=== PATIENT | female | born 1965 | race Caucasian/White ===

== ENCOUNTER 2016-11-28 09:59 | Inpatient (IN) | payer BC ==
[~2016-11-28] VITALS: Ht 160 cm; Wt 83.8 kg
[~2016-11-28 09:59] MED LIST: MONT1TAB3 PO; OXYC-57 PO
[2016-11-28] MEDS ORDERED: NAPR-1169 PO (10:50)
[2016-11-28] MEDS ORDERED: ASPI325T45 PO (10:50)
[2016-11-28 11:00] LABS: BASO % 0.1 %; BASO ABS # 0.01 K/uL (0-0.2); COMPLETE YES; EOS % 1.5 %; HEMATOCRIT 41.3 % (37-47); IG% 0.1 %; LYMPH % 22.9 %; LYMPH ABS # 2.12 K/uL (1.2-3.4); MEAN CELL VOLUME 84.5 fL (80-100); MEAN CORPUSCULAR HGB CONC 33.2 g/dl (32-36); MEAN PLATELET VOLUME 10.8 fL (7.4-10.4); MONO % 6.9 %; NEUT % 68.5 %; PLATELET COUNT 261 K/uL (130-400); RED BLOOD COUNT 4.89 M/uL (4.2-5.4); WHITE BLOOD COUNT 9.26 K/uL (4.8-10.8)
--- NOTE | 2016-11-28 11:20 | DIAGNOSTIC IMAGING REPORT ---
CHEST ONE VIEW PORTABLE HISTORY: Short of breath. COMPARISON: None. FINDINGS: The heart is normal in size. No pleural effusions. No pneumothorax. There is a 1 cm nodule in the base of the right lower lobe. This is not represent a nipple shadow. Otherwise, the lungs are clear. No focal lung consolidations to suggest pneumonia.. IMPRESSION: 1. No acute process within the chest. 2. Possible 1 cm nodule at the base the right lower lobe. Repeat PA and lateral views of the chest with oblique views is recommended once the patient is stabilized. Electronically signed by: Dipak Ernst M.D. 11/28/2016 11:18 AM Dictated Date/Time: 11/28/2016 11:16 AM
[2016-11-28 11:26] LABS: ALB/GLOB RATIO 1.1 (0.9-2); BUN/CREATININE RATIO 13.5 (10-20); CALCIUM 8.9 mg/dl (8.5-10.1); CKMB/CK RATIO 0.7 (0-3.0); CREATININE 0.99 mg/dl (0.60-1.20)
[2016-11-28] MEDS ORDERED: OPTIRAY 320 IV PRN (11:30)
--- NOTE | 2016-11-28 11:55 | EMERGENCY ROOM VISIT NOTE ---
History Report prepared by Toyin: Charla Oscar Under the Supervision of: Dr. Dom Jackson M.D. First contact with patient: 11:13 Chief Complaint: SHORTNESS OF BREATH Stated Complaint: SOB Nursing Triage Summary: Patient states she had tendon repair surgery (right) 3 weeks ago and yesterday afternoon started feeling SOB with normal activity. Pt c/o tightness in center of chest like "I can't take a deep breath and with exertion I feel like I'm, I don't have other respiratory symptoms, but when I had pneumonia I remember feeling this way. History of Present Illness The patient is a 51 year old female who presents to the Emergency Room with complaints of persistent shortness of breath that began yesterday. The patient notes that she had a tendon repair done on her right leg three weeks ago. She states that she has noted swelling to the area, but notes it has been swollen since her surgery. The patient states that yesterday she was doing her normal amount of work throughout the day, and noticed shortness of breath. She states that she took an antacid without relief. The patient states that she had been taking aspirin, but has not over the past several days. She states that on Monday she drove to and from [place], but notes being active while in [place]. The patient states that when she returned home on Monday she noticed increased swelling to her right ankle and states that the swelling was alleviated with elevation. The patient denies any current cough, but notes congestion. The patient states that her shortness of breath has persisted today , but denies any chest pain, just a "hitching" sensation. She denies any urinary symptoms. The patient notes a history of kidney cancer, noting that she had a partial nephrectomy. Source of History: patient Onset: yesterday Position: other (global) Quality: other (shortness of breath) Timing: other (persistent) Associated Symptoms: No chest pain, No urinary symptoms Note: Associated Symptoms: chest hitching Review of Systems See HPI for pertinent positives & negatives. A total of 10 systems reviewed and were otherwise negative. Past Medical & Surgical Medical Problems: (1) Dyspnea (2) Pneumonia (3) Renal cancer Surgical Problems: (1) H/O partial nephrectomy (2) S/P cholecystectomy Family History Cancer FH: heart disease FHx: lung disease Hypertension Social History Smoking Status: Never Smoker Smokeless Tobacco Use: No Alcohol Use: none Marital Status: Housing Status: lives with significant other Occupation Status: employed Current/Historical Medications Scheduled Aspirin (Aspirin), 325 MG PO DAILY Montelukast Sodium (Singulair), 10 MG PO HS Naproxen (Naprosyn), 500 MG PO BID Allergies Coded Allergies: BEE STING (Verified Allergy, Unknown, SWELLING, 11/28/16) Tamsulosin (Verified Allergy, Unknown, NUMBNESS/TINGLING ON ARM, 11/28/16) Physical Exam Vital Signs Date Time Temp Pulse Resp B/P Pulse Ox O2 Delivery O2 Flow Rate FiO2 11/28/16 16:36 75 11/28/16 15:28 36.7 87 16 144/76 98 Room Air 11/28/16 14:50 75 13 144/76 98 Room Air 11/28/16 12:47 134/83 11/28/16 11:59 130/69 11/28/16 11:29 77 16 11/28/16 10:59 77 19 97 11/28/16 10:58 117/73 11/28/16 10:47 79 18 129/74 98 Room Air 11/28/16 10:46 86 11/28/16 10:43 129/74 11/28/16 10:35 98 Room Air 11/28/16 10:17 36.7 85 18 149/68 97 Room Air Physical Exam GENERAL: Patient is in no acute distress. HEENT: No acute trauma, normocephalic atraumatic, mucous membranes moist, no nasal congestion, no scleral icterus. NECK: No stridor, no adenopathy, no meningismus, trachea is midline. LUNGS: Clear to auscultation bilaterally, no wheeze, no rhonchi, breath sounds equal. HEART: Without murmurs gallops or rubs, regular rate and rhythm. ABDOMEN: Soft, nontender, bowel sounds positive, no hernias, no peritonitis. EXTREMITIES: Right leg slightly swollen in comparison to left, no cellulitis, surgical incision healing without signs of infection NEUROLOGIC: Oriented x 3, no acute motor or sensory deficits, no focal weakness. SKIN: No rash, no jaundice, no diaphoresis. Medical Decision & Procedures ER Provider Diagnostic Interpretation: X ray results and stated below per my interpretation and radiologist interpretation. Other radiology results and stated below per my review and radiologist interpretation: CHEST ONE VIEW PORTABLE HISTORY: Short of breath. COMPARISON: None. FINDINGS: The heart is normal in size. No pleural effusions. No pneumothorax. There is a 1 cm nodule in the base of the right lower lobe. This is not represent a nipple shadow. Otherwise, the lungs are clear. No focal lung consolidations to suggest pneumonia.. IMPRESSION: 1. No acute process within the chest. 2. Possible 1 cm nodule at the base the right lower lobe. Repeat PA and lateral views of the chest with oblique views is recommended once the patient is stabilized. Electronically signed by: Dipak Ernst M.D. 11/28/2016 11:18 AM Dictated Date/Time: 11/28/2016 11:16 AM RIGHT LOWER EXTREMITY VENOUS DOPPLER CLINICAL HISTORY: Right lower external swelling. Shortness of breath. COMPARISON STUDY: No previous studies for comparison. TECHNIQUE: Sonography of the deep venous system of the right lower extremity was performed. Compression and augmentation were evaluated. FINDINGS: The right common femoral vein is patent. The proximal to mid right superficial femoral vein is patent. There is occlusive thrombus within the distal right superficial femoral vein, popliteal vein, posterior tibial vein, peroneal vein. There is a small amount of thrombus within the right anterior tibial vein. IMPRESSION: Extensive deep venous thrombus within the right lower extremity. Electronically signed by: Francisco Carlisle M.D. 11/28/2016 12:36 PM Dictated Date/Time: 11/28/2016 12:[address] ANGIOGRAM OF THE CHEST CLINICAL HISTORY: Chest pain, shortness of breath. History of recent surgery. DVT COMPARISON STUDY: Chest x-ray dated 11/28/2016 TECHNIQUE: Following the IV administration of 93 mL of Optiray-320, CT angiogram of the thorax was performed from the thoracic inlet to the lung bases utilizing the pulmonary embolus protocol. Images are reviewed in the axial, sagittal, and coronal planes. IV contrast was administered without complication. MIP imaging was performed. CT DOSE: 324.04 mGy.cm FINDINGS: No pathologically enlarged axillary mediastinal or hilar lymph nodes were visualized. There was no evidence of thoracic aortic dilatation. There is a saddle embolus measuring 8 mm in diameter. Pulmonary filling defects are visualized within both lower lobes as well as the right middle lobe. The findings are consistent with acute bilateral pulmonary embolism. No pleural effusions are visualized. There are bibasal atelectatic changes. There is no focal pulmonary consolidation. There is a 3 mm calcified granuloma within the right lung apex IMPRESSION: Acute bilateral pulmonary embolism including a saddle embolus which measures 8 mm in diameter. Electronically signed by: Shree Johnson M.D. 11/28/2016 1:57 PM Dictated Date/Time: 11/28/2016 1:53 PM Laboratory Results 11/28/16 10:35 Red Blood Count 4.89, Mean Corpuscular Volume 84.5, Mean Corpuscular Hemoglobin 28.0, Mean Corpuscular Hemoglobin Concent 33.2, Mean Platelet Volume 10.8, Neutrophils (%) (Auto) 68.5, Lymphocytes (%) (Auto) 22.9, Monocytes (%) (Auto) 6.9, Eosinophils (%) (Auto) 1.5, Basophils (%) (Auto) 0.1, Neutrophils # (Auto) 6.34, Lymphocytes # (Auto) 2.12, Monocytes # (Auto) 0.64, Eosinophils # (Auto) 0.14, Basophils # (Auto) 0.01 11/28/16 10:35 Test 11/28/16 10:35 11/28/16 11:28 11/28/16 11:30 White Blood Count 9.26 K/uL (4.8-10.8) Red Blood Count 4.89 M/uL (4.2-5.4) Hemoglobin 13.7 g/dL (12.0-16.0) Hematocrit 41.3 % (37-47) Mean Corpuscular Volume 84.5 fL (80-100) Mean Corpuscular Hemoglobin 28.0 pg (25-34) Mean Corpuscular Hemoglobin Concent 33.2 g/dl (32-36) Platelet Count 261 K/uL (130-400) Mean Platelet Volume 10.8 fL (7.4-10.4) Neutrophils (%) (Auto) 68.5 % Lymphocytes (%) (Auto) 22.9 % Monocytes (%) (Auto) 6.9 % Eosinophils (%) (Auto) 1.5 % Basophils (%) (Auto) 0.1 % Neutrophils # (Auto) 6.34 K/uL (1.4-6.5) Lymphocytes # (Auto) 2.12 K/uL (1.2-3.4) Monocytes # (Auto) 0.64 K/uL (0.11-0.59) Eosinophils # (Auto) 0.14 K/uL (0-0.5) Basophils # (Auto) 0.01 K/uL (0-0.2) RDW Standard Deviation 41.6 fL (36.4-46.3) RDW Coefficient of Variation 13.6 % (11.5-14.5) Immature Granulocyte % (Auto) 0.1 % Immature Granulocyte # (Auto) 0.01 K/uL (0.00-0.02) Anion Gap 14.0 mmol/L (3-11) Est Creatinine Clear Calc Drug Dose 65.7 ml/min Estimated GFR () 75.9 Estimated GFR (Non- 65.5 BUN/Creatinine Ratio 13.5 (10-20) Calcium Level 8.9 mg/dl (8.5-10.1) Total Bilirubin 0.3 mg/dl (0.2-1) Aspartate Amino Transf (AST/SGOT) 19 U/L (15-37) Alanine Aminotransferase (ALT/SGPT) 18 U/L (12-78) Alkaline Phosphatase 96 U/L (45-117) Total Creatine Kinase 83 U/L (26-192) Creatine Kinase MB 0.6 ng/ml (0.5-3.6) Creatine Kinase MB Ratio 0.7 (0-3.0) Total Protein 7.7 gm/dl (6.4-8.2) Albumin 4.0 gm/dl (3.4-5.0) Globulin 3.7 gm/dl (2.5-4.0) Albumin/Globulin Ratio 1.1 (0.9-2) Chemistry Specimen Hemolysis Bedside Troponin I 0.000 ng/ml (0-0.045) Prothrombin Time 10.1 SECONDS (9.0-12.0) Prothromb Time International Ratio 0.9 (0.9-1.1) Activated Partial Thromboplast Time 28.4 SECONDS (21.0-31.0) Partial Thromboplastin Ratio 1.1 Laboratory results reviewed by me. Medications Administered Medications (Trade) Dose Ordered Sig/Amalia Route Start Time Stop Time Status Last Admin Dose Admin Heparin Sodium/ Dextrose 1 ea NOW STAT N/A 11/28/16 14:30 11/28/16 14:31 DC 11/28/16 14:47 1 EA Heparin Sodium (Porcine) (Heparin Sq 5000 Unit/0.5ml) 5,000 unit STK-MED ONCE .ROUTE 11/28/16 14:36 11/28/16 14:38 DC 11/28/16 14:40 5,000 UNIT Heparin Sodium/ Dextrose (Heparin 25,000 Unit/500ml D5W) 25,000 unit STK-MED ONCE .ROUTE 11/28/16 14:36 11/28/16 14:38 DC 11/28/16 14:42 25,000 UNIT ECG Indication: SOB/dyspnea Rate (beats per minute): 74 Rhythm: normal sinus Findings: no acute ischemic change, other (subtle t wave changes anteriorly) Comparison ECG Date: 10/25/16 Change: no significant change ED Course 1118: The patient was evaluated in room C11B. A complete history and physical exam was performed. 1406: I discussed the patients case with VIANCA Lazcano. He is going to evaluate the patient for further treatment. 1410: I reevaluated the patient and she is resting comfortably. I discussed the exam findings with her and I discussed the treatment plan. She verbalized complete understanding and agreement. She will be evaluated for further treatment. 1430: Ordered Heparin Sodium/Dextrose 1 ea NA. 1436: Ordered Heparin Sodium/Dextrose 25,000 unit .route, Heparin Sodium ( Porcine) 5,000 unite .route Medical Decision The patient is a 51 year old female who presents to the ED with complaints of shortness of breath. Differential diagnoses considered include DVT or PE, bronchitis or pneumonia, cellulitis, CHF, anemia, dehydration. There is no leukocytosis or concerning anemia. No significant electrolyte abnormality, kidney failure or hepatitis. There is no coagulopathy. EKG shows a sinus rhythm, there is no acute ischemic change. Cardiac enzyme testing 1 is not suggestive of acute cardiac injury. Right leg ultrasound shows an extensive right leg DVT. Chest CT shows pulmonary emboli and a saddle embolus. The patient was aggressively managed. She received IV saline, she was given IV heparin for anticoagulation. I talked to the patient, I discussed things with radiology. I spoke with case management. The on-call hospitalist was consulted. Admission/observation is warranted. Consults Time Called: 1404 Consulting Physician: VIANCA Lazcano Returned Call: [phone] I discussed the patients case with VIANCA Lazcano. He is going to evaluate the patient for further treatment. Impression Primary Impression: Pulmonary embolism Additional Impression: DVT (deep venous thrombosis) Critical Care I have personally spent greater than 30 minutes of critical care time in the direct management of this patient. This includes bedside care, interpretation of diagnostic studies and testing, discussion with consultants, the patient, and family members, and other required patient management activities. This 30 minutes is in excess of all separately billable procedures. Scribe Attestation The scribe's documentation has been prepared under my direction and personally reviewed by me in its entirety. I confirm that the note above accurately reflects all work, treatment, procedures, and medical decision making performed by me. Departure Information Dispostion Being Evaluated By Hospitalist Referrals Nacho Enciso DO (PCP) Problem Qualifiers
[2016-11-28 12:08] LABS: INR 0.9 (0.9-1.1); PARTIAL THROMBOPLASTIN RATIO 1.1; PROTHROMBIN TIME (PATIENT) 10.1 SECONDS (9.0-12.0)
--- NOTE | 2016-11-28 12:38 | DIAGNOSTIC IMAGING REPORT ---
RIGHT LOWER EXTREMITY VENOUS DOPPLER CLINICAL HISTORY: Right lower external swelling. Shortness of breath. COMPARISON STUDY: No previous studies for comparison. TECHNIQUE: Sonography of the deep venous system of the right lower extremity was performed. Compression and augmentation were evaluated. FINDINGS: The right common femoral vein is patent. The proximal to mid right superficial femoral vein is patent. There is occlusive thrombus within the distal right superficial femoral vein, popliteal vein, posterior tibial vein, peroneal vein. There is a small amount of thrombus within the right anterior tibial vein. IMPRESSION: Extensive deep venous thrombus within the right lower extremity. Electronically signed by: Francisco Carlisle M.D. 11/28/2016 12:36 PM Dictated Date/Time: 11/28/2016 12:34 PM
--- NOTE | 2016-11-28 13:59 | DIAGNOSTIC IMAGING REPORT ---
CT ANGIOGRAM OF THE CHEST CLINICAL HISTORY: Chest pain, shortness of breath. History of recent surgery. DVT COMPARISON STUDY: Chest x-ray dated 11/28/2016 TECHNIQUE: Following the IV administration of 93 mL of Optiray-320, CT angiogram of the thorax was performed from the thoracic inlet to the lung bases utilizing the pulmonary embolus protocol. Images are reviewed in the axial, sagittal, and coronal planes. IV contrast was administered without complication. MIP imaging was performed. CT DOSE: 324.04 mGy.cm FINDINGS: No pathologically enlarged axillary mediastinal or hilar lymph nodes were visualized. There was no evidence of thoracic aortic dilatation. There is a saddle embolus measuring 8 mm in diameter. Pulmonary filling defects are visualized within both lower lobes as well as the right middle lobe. The findings are consistent with acute bilateral pulmonary embolism. No pleural effusions are visualized. There are bibasal atelectatic changes. There is no focal pulmonary consolidation. There is a 3 mm calcified granuloma within the right lung apex IMPRESSION: Acute bilateral pulmonary embolism including a saddle embolus which measures 8 mm in diameter. Electronically signed by: Shree Johnson M.D. 11/28/2016 1:57 PM Dictated Date/Time: 11/28/2016 1:53 PM
[2016-11-28] MEDS ORDERED: ENOXAPARIN 80 MG/0.8 ML SYR SQ ONE (14:06)
[2016-11-28] MEDS ORDERED: ENOXAPARIN 1 MG/KG SQ STA (14:06)
[2016-11-28] MEDS ORDERED: HEPARIN 25000 UNIT/500 ML D5W ONE (14:36)
[2016-11-28] MEDS ORDERED: HEPARIN SOD 5000 UNIT/0.5 ML CARP ONE ×2 (14:36→14:43)
[2016-11-28] MEDS ORDERED: ALUMINUM/MAGNESIUM/SIMETH (MAALOX MAX) 30 ML UDC PO PRN (15:15)
[2016-11-28] MEDS ORDERED: POLYETHYLENE (MIRALAX) 17 GM PACK PO PRN (15:15)
[2016-11-28] MEDS ORDERED: ACETAMINOPHEN 325 MG TAB PO PRN (15:15)
[2016-11-28] MEDS ORDERED: MAGNESIUM HYDROXIDE SUSP 30 ML UDC PO PRN (15:15)
[2016-11-28] MEDS ORDERED: ONDANSETRON INJ 2 MG/ML 2 ML VIAL IV PRN (15:15)
[2016-11-28 15:28] VITALS: BP 144/76; PULSE 87; TEMP 36.7; O2SAT 98; Ht 160 cm; Wt 83.8 kg
--- NOTE | 2016-11-28 16:20 | History and Physical ---
History & Physical Date & Time of Service: Nov 28, 2016 at 15:39 Chief Complaint: SOB Primary Care Physician: Nacho Enciso DO History of Present Illness Source: patient, family This is a pleasant 51 yo F w/ recent hx of Left Tendon repair (3 wks ago) by Dr. Cornell and hx of Renal Cell Carcinoma s/p L partial Nephrectomy (10 yrs ago ) p/w SOB. SOB began while she was doing laundry around 2 pm 11/27/2016. She took ASA 81 mg, antacids, slept through the night. This morning she went to work and after no improvement in symptoms, she decided to come in to ED for evaluation after she realized she felt similarly to when she previously had pneumonia. She also noticed Sat. 11/26 that she had RLE swelling but attributed it to recent surgery. She denies CP, Palpitation, Syncope, LOC, N/V, fevers/ chills, cough. NO previous VTE. Patient is a non-smoker. She states that Monday she drove to and from [place]. She reports her mother has hx of multiple clots. On arrival to ED, she was afebrile, VSS, 97-98 % sat on rm air. RLE Doppler showed extensive DVT. CT with PE protocols showed Acute Joseph PE with Saddle Embolus 8mm in diameter. She was given bolus of heparin. 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) Multi-Drug Resistant Organisms History of MDRO: No Allergies Coded Allergies: BEE STING (Verified Allergy, Unknown, SWELLING, 11/28/16) Tamsulosin (Verified Allergy, Unknown, NUMBNESS/TINGLING ON ARM, 11/28/16) Home Medications Scheduled Aspirin (Aspirin), 325 MG PO DAILY Montelukast Sodium (Singulair), 10 MG PO HS Naproxen (Naprosyn), 500 MG PO BID Review of Systems Constitutional: No chills, No fever Respiratory: + shortness of breath, No cough, No hemoptysis, No sputum Cardiovascular: + edema (Rt lower extremity), No chest pain, No palpitations Abdomen: No constipation, No diarrhea, No nausea, No pain, No vomiting Genitourinary - Female: No dysuria, No urinary urgency Hematologic / Lymphatic: No abnormal bleeding/bruising, No clotting problems Integumentary: No itch, No rash Allergic / Immunologic: + seasonal allergies Physical Exam Vital Signs Date Time Temp Pulse Resp B/P Pulse Ox O2 Delivery O2 Flow Rate FiO2 11/28/16 14:50 75 13 144/76 98 Room Air 11/28/16 12:47 134/83 11/28/16 11:59 130/69 11/28/16 11:29 77 16 11/28/16 10:59 77 19 97 11/28/16 10:58 117/73 11/28/16 10:47 79 18 129/74 98 Room Air 11/28/16 10:46 86 11/28/16 10:43 129/74 11/28/16 10:35 98 Room Air 11/28/16 10:17 36.7 85 18 149/68 97 Room Air General Appearance: WD/WN, no apparent distress Eyes: normal inspection, PERRL Neck: supple, no JVD, trachea midline Respiratory/Chest: lungs clear, normal breath sounds, no respiratory distress Cardiovascular: regular rate, rhythm, no murmur Abdomen/GI: normal bowel sounds, soft Extremities/Musculoskelatal: no calf tenderness, no pedal edema, + pertinent finding (RLE edema. non-erythematous, non-tender, not warm. Incision C/D/I) Neurologic/Psych: alert, normal mood/affect Skin: normal color, warm/dry Diagnostics Laboratory Results Results Past 24 Hours Test 11/28/16 10:35 11/28/16 11:28 11/28/16 11:30 Range/Units White Blood Count 9.26 4.8-10.8 K/uL Red Blood Count 4.89 4.2-5.4 M/uL Hemoglobin 13.7 12.0-16.0 g/dL Hematocrit 41.3 37-47 % Mean Corpuscular Volume 84.5 80-100 fL Mean Corpuscular Hemoglobin 28.0 25-34 pg Mean Corpuscular Hemoglobin Concent 33.2 32-36 g/dl Platelet Count 261 130-400 K/uL Mean Platelet Volume 10.8 7.4-10.4 fL Neutrophils (%) (Auto) 68.5 % Lymphocytes (%) (Auto) 22.9 % Monocytes (%) (Auto) 6.9 % Eosinophils (%) (Auto) 1.5 % Basophils (%) (Auto) 0.1 % Neutrophils # (Auto) 6.34 1.4-6.5 K/uL Lymphocytes # (Auto) 2.12 1.2-3.4 K/uL Monocytes # (Auto) 0.64 0.11-0.59 K/uL Eosinophils # (Auto) 0.14 0-0.5 K/uL Basophils # (Auto) 0.01 0-0.2 K/uL RDW Standard Deviation 41.6 36.4-46.3 fL RDW Coefficient of Variation 13.6 11.5-14.5 % Immature Granulocyte % (Auto) 0.1 % Immature Granulocyte # (Auto) 0.01 0.00-0.02 K/uL Sodium Level 142 136-145 mmol/L Potassium Level 4.0 3.5-5.1 mmol/L Chloride Level 105 98-107 mmol/L Carbon Dioxide Level 23 21-32 mmol/L Anion Gap 14.0 3-11 mmol/L Blood Urea Nitrogen 13 7-18 mg/dl Creatinine 0.99 0.60-1.20 mg/dl Est Creatinine Clear Calc Drug Dose 65.7 ml/min Estimated GFR () 75.9 Estimated GFR (Non- 65.5 BUN/Creatinine Ratio 13.5 10-20 Random Glucose 106 70-99 mg/dl Calcium Level 8.9 8.5-10.1 mg/dl Total Bilirubin 0.3 0.2-1 mg/dl Aspartate Amino Transf (AST/SGOT) 19 15-37 U/L Alanine Aminotransferase (ALT/SGPT) 18 12-78 U/L Alkaline Phosphatase 96 45-117 U/L Total Creatine Kinase 83 26-192 U/L Creatine Kinase MB 0.6 0.5-3.6 ng/ml Creatine Kinase MB Ratio 0.7 0-3.0 Total Protein 7.7 6.4-8.2 gm/dl Albumin 4.0 3.4-5.0 gm/dl Globulin 3.7 2.5-4.0 gm/dl Albumin/Globulin Ratio 1.1 0.9-2 Chemistry Specimen Hemolysis Bedside Troponin I 0.000 0-0.045 ng/ml Prothrombin Time 10.1 9.0-12.0 SECONDS Prothromb Time International Ratio 0.9 0.9-1.1 Activated Partial Thromboplast Time 28.4 21.0-31.0 SECONDS Partial Thromboplastin Ratio 1.1 Diagnostic Radiology CHEST ONE VIEW PORTABLE HISTORY: Short of breath. COMPARISON: None. FINDINGS: The heart is normal in size. No pleural effusions. No pneumothorax. There is a 1 cm nodule in the base of the right lower lobe. This is not represent a nipple shadow. Otherwise, the lungs are clear. No focal lung consolidations to suggest pneumonia.. IMPRESSION: 1. No acute process within the chest. 2. Possible 1 cm nodule at the base the right lower lobe. Repeat PA and lateral views of the chest with oblique views is recommended once the patient is stabilized. RIGHT LOWER EXTREMITY VENOUS DOPPLER CLINICAL HISTORY: Right lower external swelling. Shortness of breath. COMPARISON STUDY: No previous studies for comparison. TECHNIQUE: Sonography of the deep venous system of the right lower extremity was performed. Compression and augmentation were evaluated. FINDINGS: The right common femoral vein is patent. The proximal to mid right superficial femoral vein is patent. There is occlusive thrombus within the distal right superficial femoral vein, popliteal vein, posterior tibial vein, peroneal vein. There is a small amount of thrombus within the right anterior tibial vein. IMPRESSION: Extensive deep venous thrombus within the right lower extremity. CT ANGIOGRAM OF THE CHEST CLINICAL HISTORY: Chest pain, shortness of breath. History of recent surgery. DVT COMPARISON STUDY: Chest x-ray dated 11/28/2016 TECHNIQUE: Following the IV administration of 93 mL of Optiray-320, CT angiogram of the thorax was performed from the thoracic inlet to the lung bases utilizing the pulmonary embolus protocol. Images are reviewed in the axial, sagittal, and coronal planes. IV contrast was administered without complication. MIP imaging was performed. CT DOSE: 324.04 mGy.cm FINDINGS: No pathologically enlarged axillary mediastinal or hilar lymph nodes were visualized. There was no evidence of thoracic aortic dilatation. There is a saddle embolus measuring 8 mm in diameter. Pulmonary filling defects are visualized within both lower lobes as well as the right middle lobe. The findings are consistent with acute bilateral pulmonary embolism. No pleural effusions are visualized. There are bibasal atelectatic changes. There is no focal pulmonary consolidation. There is a 3 mm calcified granuloma within the right lung apex IMPRESSION: Acute bilateral pulmonary embolism including a saddle embolus which measures 8 mm in diameter. Impression Assessment and Plan 51 yo F p/w SOB admitted for DVT, JOSEPH PE w/ 8mm diam. saddle embolus, currently hemodynamically stable given Heparin bolus DVT/PE/ Hypercoagulability -hemodynamically stable, 98% saturation rm air -LE Doppler: extensive Rt LE DVT -CTA: Acute Joseph PE with Saddle Embolus (8mm diameter) - VTE likely due to elevated post-operative risk in hypercoagulability , Considered recurrence of malignancy based on hx of RCC and Familial Hypercoagulability given's mother's history of thrombi - started on Heparin Bolus -Start weight- based Heparin infusion -Consider Hypercoagulability workup as an outpatient given patient's family hx of VTE -Continue ASA 325mg from home Hx of Renal Cell Carcinoma (10 yrs ago) - s/p L partial Nephrectomy - R/O potential recurrence in RCC contributing to hypercoagulability, Ordered Renal U/S for evaluation s/p Left Peroneal Tendon repair -Orthopedics consulted for evaluation - Continue home dose of Naproxen for pain Seasonal Allergy Continue home dose of Montelukast Full Resuscitation Advanced Directives Existing Advance Directive: No Existing Living Will: No Existing Power of Wire Repairer: No Resuscitation Status FULL RESUSCITATION VTE Prophylaxis VTE Risk Assessment Done? Y/N: Yes Risk Level: High Given or contraindicated: Unfractionated heparin SQ Additional Copies To Nacho Enciso, DO
[2016-11-28] MEDS ORDERED: HEPARIN 25,000 UNIT/500ML D5W 500 ML IV PRN (17:15)
[2016-11-28 20:00] VITALS: O2SAT 95
[2016-11-28 20:46] VITALS: BP 134/81; PULSE 73; TEMP 36.5; O2SAT 95
[2016-11-28] MEDS: MONTELUKAST SOD 10 MG TAB PO SCH (21:10)
[2016-11-28] MEDS: NAPROXEN 250 MG TAB PO SCH (21:10)
[2016-11-28 21:31] LABS: PARTIAL THROMBOPLASTIN RATIO 2.4
--- NOTE | 2016-11-28 22:37 | DIAGNOSTIC IMAGING REPORT ---
ULTRASOUND KIDNEYS AND BLADDER CLINICAL HISTORY: History of renal cell carcinoma. COMPARISON STUDY: Abdominal CT dated 09/04/2006. TECHNIQUE: Real-time, grayscale, and color flow sonography of the kidneys and bladder is performed. Images are reviewed in the transverse and longitudinal planes. FINDINGS: Kidneys: The kidneys are normal in size and echotexture. The right kidney measures 9.0 x 4.4 x 5.9 cm and the left kidney measures 10.3 x 5.3 x 6.3 cm. There is no hydronephrosis. No shadowing renal calculi are identified. There is a cortical defect suspected in the lower pole of left kidney. There is no sonographic evidence of solid renal mass. No perinephric fluid is identified. Bladder: The partially decompressed bladder is grossly normal in appearance. Only the right ureteral jet was seen. IMPRESSION: 1. There is no hydronephrosis. 2. There is a cortical defect suspected in the lower pole of the left kidney. This may be on a postoperative basis given the reported history of renal cell carcinoma. Clinical correlation will be required. 3. There is no sonographic evidence of solid renal mass lesion. 4. The bladder is partially decompressed and grossly unremarkable. Electronically signed by: Dom Finch M.D. 11/28/2016 10:35 PM Dictated Date/Time: 11/28/2016 10:33 PM
[2016-11-28 23:25] VITALS: BP 119/79; PULSE 73; TEMP 36.7; O2SAT 93
[2016-11-29] VITALS (11 sets, daily range): BP systolic 110–126; BP diastolic 67–82; PULSE 68–79; TEMP 36.4–37; O2SAT 93–97
--- NOTE | 2016-11-29 07:35 | Progress Note ---
Subjective Date of Service: Nov 29, 2016. Subjective this pt is stable and outside of some postural shortness of breath last evening has been improved and without symptoms Problem List Medical Problems: (1) DVT (deep venous thrombosis) Status: Acute (2) Pulmonary embolism Status: Acute Review of Systems Constitutional: No chills, No fever Respiratory: + dyspnea on exertion, + shortness of breath, No cough, No dyspnea at rest Cardiac: No chest pain, No edema Abdomen: No diarrhea, No nausea, No pain, No vomiting Musculoskeletal: + joint pain, + muscle pain Objective Vital Signs Date Time Temp Pulse Resp B/P Pulse Ox O2 Delivery O2 Flow Rate FiO2 11/29/16 04:37 36.4 72 19 123/78 94 Room Air 11/29/16 04:00 93 Room Air 11/29/16 00:01 93 Room Air 11/28/16 23:25 36.7 73 19 119/79 93 Room Air 11/28/16 20:46 36.5 73 18 134/81 95 Room Air 11/28/16 20:00 95 Room Air 11/28/16 16:50 76 16 121/72 98 Room Air 11/28/16 16:36 75 11/28/16 15:28 36.7 87 16 144/76 98 Room Air 11/28/16 14:50 75 13 144/76 98 Room Air 11/28/16 12:47 134/83 11/28/16 11:59 130/69 11/28/16 11:29 77 16 11/28/16 10:59 77 19 97 11/28/16 10:58 117/73 11/28/16 10:47 79 18 129/74 98 Room Air 11/28/16 10:46 86 11/28/16 10:43 129/74 11/28/16 10:35 98 Room Air 11/28/16 10:17 36.7 85 18 149/68 97 Room Air Physical Exam General Appearance: WD/WN, + mild distress Neck: supple, no JVD Respiratory/Chest: chest non-tender, lungs clear, normal breath sounds Cardiovascular: regular rate, rhythm, no murmur Abdomen: normal bowel sounds, non tender, soft Extremities: no pedal edema, no calf tenderness Laboratory Results Last 24 Hours Test 11/28/16 10:35 11/28/16 11:28 11/28/16 11:30 11/28/16 20:56 White Blood Count 9.26 K/uL Red Blood Count 4.89 M/uL Hemoglobin 13.7 g/dL Hematocrit 41.3 % Mean Corpuscular Volume 84.5 fL Mean Corpuscular Hemoglobin 28.0 pg Mean Corpuscular Hemoglobin Concent 33.2 g/dl Platelet Count 261 K/uL Mean Platelet Volume 10.8 fL Neutrophils (%) (Auto) 68.5 % Lymphocytes (%) (Auto) 22.9 % Monocytes (%) (Auto) 6.9 % Eosinophils (%) (Auto) 1.5 % Basophils (%) (Auto) 0.1 % Neutrophils # (Auto) 6.34 K/uL Lymphocytes # (Auto) 2.12 K/uL Monocytes # (Auto) 0.64 K/uL Eosinophils # (Auto) 0.14 K/uL Basophils # (Auto) 0.01 K/uL RDW Standard Deviation 41.6 fL RDW Coefficient of Variation 13.6 % Immature Granulocyte % (Auto) 0.1 % Immature Granulocyte # (Auto) 0.01 K/uL Sodium Level 142 mmol/L Potassium Level 4.0 mmol/L Chloride Level 105 mmol/L Carbon Dioxide Level 23 mmol/L Anion Gap 14.0 mmol/L Blood Urea Nitrogen 13 mg/dl Creatinine 0.99 mg/dl Est Creatinine Clear Calc Drug Dose 65.7 ml/min Estimated GFR () 75.9 Estimated GFR (Non- 65.5 BUN/Creatinine Ratio 13.5 Random Glucose 106 mg/dl Calcium Level 8.9 mg/dl Total Bilirubin 0.3 mg/dl Aspartate Amino Transf (AST/SGOT) 19 U/L Alanine Aminotransferase (ALT/SGPT) 18 U/L Alkaline Phosphatase 96 U/L Total Creatine Kinase 83 U/L Creatine Kinase MB 0.6 ng/ml Creatine Kinase MB Ratio 0.7 Total Protein 7.7 gm/dl Albumin 4.0 gm/dl Globulin 3.7 gm/dl Albumin/Globulin Ratio 1.1 Chemistry Specimen Hemolysis Bedside Troponin I 0.000 ng/ml Prothrombin Time 10.1 SECONDS Prothromb Time International Ratio 0.9 Activated Partial Thromboplast Time 28.4 SECONDS 63.4 SECONDS Partial Thromboplastin Ratio 1.1 2.4 Test 11/29/16 04:44 Assessment and Plan 51 yo FDVT, JOSEPH PE w/ 8mm diam. saddle embolus, currently hemodynamically stable. PT is approx 3 weeks s/p peroneal tendon repair DVT/PE/ provoked as post op -hemodynamically stable, -LE Doppler: extensive Rt LE DVT-CTA: Acute Joseph PE with Saddle Embolus (8mm diameter) - VTE likely due to elevated post-operative risk in hypercoagulability ,does have a history of malignancy (Renal cell ca) and Familial Hypercoagulability - started on Heparin Bolus, discuss longer term treatments -Continue ASA 325mg from home Hx of Renal Cell Carcinoma (10 yrs ago) - s/p L partial Nephrectomy, Renal U/S for evaluation renal ultrasound suggests no recurrence s/p Left Peroneal Tendon repair -Orthopedics consulted for evaluation Full Resuscitation
[2016-11-29] MEDS: NAPROXEN 250 MG TAB PO SCH ×2 (07:39→22:22)
[2016-11-29 07:44] LABS: HEMATOCRIT 37.2 % (37-47); MEAN CELL VOLUME 84.4 fL (80-100); MEAN CORPUSCULAR HEMOGLOBIN 27.9 pg (25-34); MEAN CORPUSCULAR HGB CONC 33.1 g/dl (32-36); MEAN PLATELET VOLUME 10.8 fL (7.4-10.4); PLATELET COUNT 234 K/uL (130-400); RED BLOOD COUNT 4.41 M/uL (4.2-5.4); WHITE BLOOD COUNT 8.42 K/uL (4.8-10.8)
[2016-11-29 08:03] LABS: PARTIAL THROMBOPLASTIN RATIO 2.3; PROTHROMBIN TIME (PATIENT) 10.6 SECONDS (9.0-12.0)
[2016-11-29 08:14] LABS: BUN/CREATININE RATIO 16.4 (10-20); CALCIUM 8.7 mg/dl (8.5-10.1); CREATININE 0.78 mg/dl (0.60-1.20); POTASSIUM 3.8 mmol/L (3.5-5.1)
[2016-11-29] MEDS ORDERED: ASPIRIN 81 MG ECTAB PO SCH (09:00)
[2016-11-29] MEDS ORDERED: ASPIRIN 325 MG ECTAB PO SCH (09:00)
--- NOTE | 2016-11-29 14:21 | Medical Student: [facility] ---
Med Student Progress Note Date of Service Nov 29, 2016. Subjective Pt evaluation today including: conversation w/ patient, physical exam, chart review, lab review, review of studies Pain: no pain reported PO Intake: tolerating po intake Voiding: no voiding problems no acute events overnight. patient reports no shortness of breath at rest. She has some mild exertional dyspnea when going to the bathroom and she had a mild exacerbation of SOB upon lying horizontal in bed which resolved with inclination of the bed. she denies chest pain, abdominal pain, nausea, or vomiting. she is now instructed to be weight-bearing as tolerated on her operated leg. No other symptoms to report. Review of Systems Constitutional: No chills, No fever Respiratory: + dyspnea on exertion, + shortness of breath, No cough, No sputum Cardiac: No chest pain Abdomen: No diarrhea, No nausea, No pain, No vomiting Objective Vital Signs Date Time Temp Pulse Resp B/P Pulse Ox O2 Delivery O2 Flow Rate FiO2 11/29/16 12:00 94 Room Air 11/29/16 11:18 37.0 79 20 110/67 96 Room Air 11/29/16 08:00 94 Room Air 11/29/16 07:42 36.6 73 20 110/74 94 Room Air 11/29/16 04:37 36.4 72 19 123/78 94 Room Air 11/29/16 04:00 93 Room Air 11/29/16 00:01 93 Room Air 11/28/16 23:25 36.7 73 19 119/79 93 Room Air 11/28/16 20:46 36.5 73 18 134/81 95 Room Air 11/28/16 20:00 95 Room Air 11/28/16 16:50 76 16 121/72 98 Room Air 11/28/16 16:36 75 11/28/16 15:28 36.7 87 16 144/76 98 Room Air 11/28/16 14:50 75 13 144/76 98 Room Air Physical Exam General Appearance: WD/WN, no apparent distress Eyes: bilateral eyes PERRL, bilateral eyes normal inspection ENT: hearing grossly normal, pharynx normal Neck: supple, no JVD Respiratory/Chest: chest non-tender, lungs clear, normal breath sounds, no respiratory distress Cardiovascular: regular rate, rhythm, no edema, no gallop, no JVD, no murmur Abdomen: non tender, soft Extremities: non-tender, no pedal edema, + swelling (mild swelling of right lower extremity) Neurologic/Psychiatric: alert, normal mood/affect, oriented x 3 Skin: normal color, warm/dry, no rash Laboratory Results Last 24 Hours Test 11/28/16 20:56 11/29/16 07:25 Activated Partial Thromboplast Time 63.4 SECONDS 59.5 SECONDS Partial Thromboplastin Ratio 2.4 2.3 White Blood Count 8.42 K/uL Red Blood Count 4.41 M/uL Hemoglobin 12.3 g/dL Hematocrit 37.2 % Mean Corpuscular Volume 84.4 fL Mean Corpuscular Hemoglobin 27.9 pg Mean Corpuscular Hemoglobin Concent 33.1 g/dl RDW Standard Deviation 41.9 fL RDW Coefficient of Variation 13.7 % Platelet Count 234 K/uL Mean Platelet Volume 10.8 fL Prothrombin Time 10.6 SECONDS Prothromb Time International Ratio 1.0 Sodium Level 143 mmol/L Potassium Level 3.8 mmol/L Chloride Level 108 mmol/L Carbon Dioxide Level 24 mmol/L Anion Gap 11.0 mmol/L Blood Urea Nitrogen 13 mg/dl Creatinine 0.78 mg/dl Est Creatinine Clear Calc Drug Dose 86.6 ml/min Estimated GFR () 101.3 Estimated GFR (Non- 87.4 BUN/Creatinine Ratio 16.4 Random Glucose 88 mg/dl Calcium Level 8.7 mg/dl Medications Current Inpatient Medications Medications (Trade) Dose Ordered Sig/Amalia Route Start Time Stop Time Status Last Admin Dose Admin Ioversol (Optiray 320) 125 ml UD PRN IV 11/28/16 11:30 12/02/16 11:29 Acetaminophen (Tylenol Tab) 650 mg Q4H PRN PO 11/28/16 15:15 12/28/16 15:14 Al Hydrox/Mg Hydrox/Simethicone (Maalox Max Susp) 15 ml Q4H PRN PO 11/28/16 15:15 12/28/16 15:14 Magnesium Hydroxide (Milk Of Magnesia Susp) 30 ml Q12H PRN PO 11/28/16 15:15 12/28/16 15:14 Ondansetron HCl (Zofran Inj) 4 mg Q6H PRN IV 11/28/16 15:15 12/28/16 15:14 Polyethylene (Miralax Powder Packet) 17 gm DAILY PRN PO 11/28/16 15:15 12/28/16 15:14 Montelukast Sodium (Singulair Tab) 10 mg HS PO 11/28/16 21:00 12/28/16 20:59 11/28/16 21:10 10 MG Naproxen 500 mg 500 mg BID PO 11/28/16 21:00 12/28/16 20:59 11/29/16 07:39 500 MG Heparin Sodium/ Dextrose (Heparin 25,000 Unit/500ml D5W) 500 ml @ 22 mls/hr [id number] PRN IV 11/28/16 17:15 11/29/16 18:45 Rivaroxaban (Xarelto Tab) 15 mg BIDM PO 11/29/16 16:45 12/20/16 16:44 Miscellaneous (Stop Order) 1 ea ONE ONCE N/A 11/29/16 18:45 11/29/16 18:46 Assessment and Plan Assessment and Plan: This is a 51 yo female w/hx of renal cell carcinoma s/p nephrectomy 10 years prior and recent right peroneal tendon repair who presented with extensive right lower extremity DVT and 8 mm saddle pulmonary embolism. DVT/PE -hemodynamically stable, 98% saturation rm air -LE Doppler: extensive Rt LE DVT -CTA: Acute Joseph PE with Saddle Embolus (8mm diameter) - VTE likely due to elevated post-operative risk in hypercoagulability and immobility of right lower extremity - started on Heparin Bolus - will transition to rivaroxaban following completion of heparin gtt - 15 mg bid for 21 days and then 20 mg daily for prophylaxis - Continue ASA 325mg from home Hx of Renal Cell Carcinoma (10 yrs ago) - s/p L partial Nephrectomy - R/O potential recurrence in RCC contributing to hypercoagulability, Ordered Renal U/S for evaluation s/p Right Peroneal Tendon repair - Orthopedics consult appreciate. No changes recommended other than increased activity as tolerated. - Continue home dose of Naproxen for pain Seasonal Allergy - Continue home dose of Montelukast Continued [facility] stay due to: other (continued monitoring) Discharge planning: home
--- NOTE | 2016-11-29 14:45 | ORTHOPEDIC CONSULTATION ---
DATE OF CONSULTATION: 11/29/2016 CHIEF COMPLAINT: Followup of her right ankle surgery about a month ago. HISTORY OF PRESENT ILLNESS: The patient is a 51-year-old female, who is well known to me from a relatively recent ankle peroneal tendon repair and reconstruction just about a month ago. She was doing pretty well. We took her stitches out routinely at 2 weeks. Her leg looked good at that point. We took her out of the splint and put her in a walking boot and let her start weightbearing on it. Just over the weekend on Monday she was changing laundry when she started to develop some shortness of breath. This kind of persisted. She called our office yesterday and was requesting an ultrasound. With her complaint of shortness of breath, we recommend she come to the ER. She did eventually present to the Emergency Room and was diagnosed with a significant pulmonary embolism as well as a lower extremity DVT. She has been admitted to the PCU now, on anticoagulation therapy. Really does not have any ankle or leg pain. Has not noticed much swelling in her leg. She was taking aspirin twice a day for the first 2 weeks but states she has been a little bit lazy on it lately as she has gone back to work. Shortness of breath appears to be improved currently. PAST MEDICAL HISTORY: 1. Significant for renal cell carcinoma status post resection without recurrence. 2. History of pneumonia. 3. The remainder of the past medical history is per the admission H\T\P. PHYSICAL EXAMINATION: VITAL SIGNS: Temperature 37.0. Vital signs stable. O2 sat 96%. GENERAL: Adelia is a pleasant, middle-aged female. Looks to be really comfortable sitting up in bed. EXTREMITIES: Examination of the right lower extremity reveals fairly minimal swelling. Her lateral incision is well healed, but there is no redness or signs of infection. She can dorsiflex and plantarflex her foot appropriately. She is neurologically intact. No real calf tenderness. Had normal knee motion. ULTRASOUND: The ultrasound result reveals a fairly significant DVT in the right lower extremity. CT SCAN: CT scan shows a saddle pulmonary embolism. ASSESSMENT: A 51-year-old female now about a month out from a right peroneal tendon repair/reconstruction with an acute pulmonary embolism with a DVT in her lower extremity. Amazingly, her right lower extremity is relatively asymptomatic without much in the way of swelling at all and without pain. Her wound is healing in nicely. She is relatively comfortable currently breathing. PLAN: She is currently being anti-coagulated by the medicine service, which is obviously appropriate. From the orthopedic standpoint she can weightbear as tolerated in the walking boot. We certainly like to mobilize her as much as possible. She can fully weightbear in the boot. Does not require any therapy at this point. Calf high RENAE stocking I think would be appropriate to try and help prevent post-phlebitic syndrome or significant swelling in this leg. Any questions can be directed to me at [phone]. MTDD
[2016-11-29] MEDS ORDERED: XRL15 PO (15:54)
[2016-11-29] MEDS: RIVAROXABAN TAB 15 MG TAB PO SCH (16:50)
[2016-11-29] MEDS: MONTELUKAST SOD 10 MG TAB PO SCH (22:22)
[2016-11-30 03:39] VITALS: BP 113/73; PULSE 69; TEMP 36.7; O2SAT 95
[2016-11-30 07:13] LABS: HEMATOCRIT 37.5 % (37-47); MEAN CELL VOLUME 84.8 fL (80-100); MEAN CORPUSCULAR HEMOGLOBIN 28.1 pg (25-34); MEAN CORPUSCULAR HGB CONC 33.1 g/dl (32-36); MEAN PLATELET VOLUME 10.7 fL (7.4-10.4); PLATELET COUNT 239 K/uL (130-400); RED BLOOD COUNT 4.42 M/uL (4.2-5.4); WHITE BLOOD COUNT 8.51 K/uL (4.8-10.8)
[2016-11-30 07:15] LABS: PARTIAL THROMBOPLASTIN RATIO 1.2; PROTHROMBIN TIME (PATIENT) 10.9 SECONDS (9.0-12.0)
[2016-11-30] MEDS: NAPROXEN 250 MG TAB PO SCH (07:37)
[2016-11-30] MEDS: RIVAROXABAN TAB 15 MG TAB PO SCH (07:37)
[2016-11-30 07:42] LABS: BUN/CREATININE RATIO 15.6 (10-20); CALCIUM 8.7 mg/dl (8.5-10.1); CREATININE 0.78 mg/dl (0.60-1.20); POTASSIUM 3.9 mmol/L (3.5-5.1)
[2016-11-30 07:50] VITALS: BP 129/82; PULSE 73; TEMP 36.8; O2SAT 95
[2016-11-30] MEDS ORDERED: ASPI81TA28 PO (08:47)
[2016-11-30] MEDS ORDERED: TYLOTC500 PO (08:47)
[2016-11-30] MEDS ORDERED: RIVA1TAB4 PO (08:47)
--- NOTE | 2016-11-30 08:49 | Discharge Instructions ---
Discharge Instructions Admission Reason for Admission: Dyspnea,Pulmonary Embolism Discharge Discharge Diagnosis / Problem: (1) Pulmonary embolism (2) DVT (deep venous thrombosis) VTE Date & Time Date of VTE Diagnosis: Nov 28, 2016 Time of VTE Diagnosis: 13:53 Discharge Goals Goal(s): Diagnostic testing, Therapeutic intervention Activity Recommendations Activity Limitations: as noted below Lifting Limitations: gradually increase as tolerated (follow post operative activity instuctions) . Instructions / Follow-Up Instructions / Follow-Up Medication Instructions: Your condition is typically treated with an anticoagulant. Anticoagulants will thin your blood to help prevent new clots. * You should take her medication exactly as directed. * Never skip a dose. * Never take a double dose. If you miss a dose, take it as soon as you remember. Call your Primary Care doctor if you experience any of the following: * Swelling or Pain in your leg * Sudden, continuous pain deep in a muscle * Pain that worsens when you are active or when you stand still for a long time * Chest Pain * Sudden Shortness of Breath * Rapid or pounding heart beat * Fainting * Dizziness * Cough with blood or bloody sputum * Sweating more than normal * Bruises * Heavy or uncontrolled bleeding * Blood in your urine, stool or vomit * Black or tarry stools Caring for Your Self at Home: * Avoid sitting, standing or lying down for long periods without moving your legs and feet * When traveling by car, stop to get out and move around at least once every 3 hours * On long airplane, train or bus rides, get up and move around when possible * If you can't get up, wiggle your toes and tighten your calves to keep your blood moving Follow Up: It is important for you to keep your follow up appointments with your medical provider. Current Hospital Diet Patient's current hospital diet: Regular Diet Discharge Diet Recommended Diet: Regular Diet Pending Studies Studies pending at discharge: no Medical Emergencies . Who to Call and When: Medical Emergencies: If at any time you feel your situation is an emergency, please call 911 immediately. . Non-Emergent Contact Non-Emergency issues call your: Primary Care Provider (for Pulmonary embolism issues, ortho for leg issues) Call Non-Emergent contact if: temperature is above 101, your pain is worsening . . "Provider Documentation" section prepared by Jean-Paul Dixon. VTE Core Measure Inpt VTE Proph given/why not?: Unfractionated heparin SQ, Other Anticoagulation
[2016-11-30 10:08] VITALS: BP 129/82; PULSE 73; TEMP 36.8; O2SAT 95
--- NOTE | 2016-11-30 13:51 | Discharge Summary ---
Discharge Summary Admission Date: Nov 28, 2016 at 15:33 Discharge Date: Nov 30, 2016 Discharge Disposition: Home Principal Diagnosis: dvt/saddle PE Medication Reconciliation New Medications: Acetaminophen (Tylenol) 500 Mg Tab 1000 MG PO Q8 PRN for Pain for 365 Days, #2190 TAB Rivaroxaban (Xarelto) 15 Mg Tab 15 MG PO BID, #42 DOSE "starter kit" Rivaroxaban (Xarelto) 20 Mg Tab 1 TAB PO DAILY for 30 Days, #30 TAB 5 Refills start after completed 21 days of started pack Continued Medications: Montelukast Sodium (Singulair) 10 Mg Tab 10 MG PO HS, TAB Discontinued Medications: Aspirin (Aspirin) 325 Mg Tab 325 MG PO DAILY Naproxen (Naprosyn) 500 Mg Tab 500 MG PO BID, TAB Discharge Exam Review of Systems: Constitutional: No chills, No fever Respiratory: No cough, No dyspnea on exertion, No shortness of breath, No sputum Cardiovascular: No chest pain, No edema, No orthopnea Abdomen: No diarrhea, No nausea, No pain, No vomiting Musculoskeletal: + joint pain, + muscle pain, + swelling Genitourinary - Female: No dysuria, No urinary frequency Physical Exam: General Appearance: WD/WN, no apparent distress Neck: supple, no JVD Respiratory/Chest: chest non-tender, lungs clear, normal breath sounds Cardiovascular: regular rate, rhythm, no murmur Abdomen / GI: normal bowel sounds, non tender, soft Extremities: no pedal edema, normal range of motion Hospital Course 51 yo FDVT, JOSEPH PE w/ 8mm diam. saddle embolus, currently hemodynamically stable. PT is approx 3 weeks s/p peroneal tendon repair DVT/PE/ provoked as post op -hemodynamically stable, -LE Doppler: extensive Rt LE DVT-CTA: Acute Joseph PE with Saddle Embolus (8mm diameter) - VTE likely due to elevated post-operative risk in hypercoagulability ,does have a history of malignancy (Renal cell ca) and Familial Hypercoagulability - started on Heparin pt has chosen Xarelto and understands co pay etc, tolerated first dose here Hx of Renal Cell Carcinoma (10 yrs ago) - s/p L partial Nephrectomy, Renal U/S for evaluation renal ultrasound suggests no recurrence s/p Left Peroneal Tendon repair -Orthopedics consulted for evaluation, will follow up with Dr Cornell Total Time Spent: Greater than 30 minutes This includes examination of the patient, discharge planning, medication reconciliation, and communication with other providers. Discharge Instructions Please refer to the electronic Patient Visit Report (Discharge Instructions) for additional information.
== END 2016-11-30 11:01 | disposition home or self-care (01) | DRG 301 ==
LOC: ENRESERVTM → ENRESERVDT → C.EDB 10:01 → C.2T 15:33
PROVIDERS: ADMIT Internal Medicine; ATTEND Internal Medicine
DX: I82.441 Acute embolism and thrombosis of right tibial vein (principal); I82.401 Acute embolism and thrombosis of unspecified deep veins of right lower extremity; Z85.528 Personal history of other malignant neoplasm of kidney; Z82.49 Family history of ischemic heart disease and other diseases of the circulatory system; Z80.8 Family history of malignant neoplasm of other organs or systems; Z79.82 Long term (current) use of aspirin; Z91.030 Bee allergy status

== ENCOUNTER 2016-12-30 21:38 | Emergency (ER) | payer BC ==
[~2016-12-30] VITALS: Ht 160 cm; Wt 81.1 kg
[~2016-12-30 21:38] MED LIST changes: -OXYC-57 PO; +RIVA1TAB4 PO; +TYLOTC500 PO; +XRL15 PO
[2016-12-30 21:42] VITALS: TEMP 36.9; Ht 160 cm; Wt 81.1 kg
[2016-12-31] MEDS ORDERED: SODIUM CHLORIDE 0.9% 1000ML 1,000 ML IV STA (00:04)
[2016-12-31] MEDS ORDERED: OPTIRAY 320 IV PRN (00:30)
[2016-12-31 00:43] VITALS: O2SAT 98
[2016-12-31 01:19] LABS: BASO % 0.3 %; BASO ABS # 0.03 K/uL (0-0.2); COMPLETE YES; EOS % 1.1 %; HEMATOCRIT 38.5 % (37-47); IG% 0.2 %; LYMPH % 35.7 %; LYMPH ABS # 3.16 K/uL (1.2-3.4); MEAN CELL VOLUME 83.7 fL (80-100); MEAN CORPUSCULAR HGB CONC 33.5 g/dl (32-36); MEAN PLATELET VOLUME 10.6 fL (7.4-10.4); NEUT % 56.7 %; PLATELET COUNT 279 K/uL (130-400); WHITE BLOOD COUNT 8.86 K/uL (4.8-10.8)
[2016-12-31 01:20] LABS: ISTAT CREATININE 0.8 mg/dl (0.6-1.3); ISTAT HEMOGLOBIN 13.9 g/dl (12.0-16.0); ISTAT IONIZED CALCIUM 1.17 mmol/l (1.12-1.32)
[2016-12-31 01:25] LABS: URINE APPEARANCE CLEAR (CLEAR); URINE BILIRUBIN NEG (NEG); URINE COLOR YELLOW; URINE EPITHELIAL CELL AUTO >30 /lpf (0-5); URINE NITRITE NEG (NEG); URINE PH 7.5 (4.5-7.5); URINE SPECIFIC GRAVITY 1.005 (1.000-1.030); UROBILINOGEN NEG (NEG); ZZUR CULT IF INDIC CLEAN CATCH NO
[2016-12-31 01:29] LABS: PARTIAL THROMBOPLASTIN RATIO 1.2; PROTHROMBIN TIME (PATIENT) 10.6 SECONDS (9.0-12.0)
[2016-12-31 01:30] LABS: MANUAL MICROSCOPIC REQUIRED? NO; REVIEW REQ? NO
[2016-12-31 01:42] LABS: ALT/SGPT 23 U/L (12-78); AST/SGOT 16 U/L (15-37); BLOOD UREA NITROGEN 13 mg/dl (7-18); BUN/CREATININE RATIO 14.9 (10-20); CALCIUM 8.6 mg/dl (8.5-10.1); CARBON DIOXIDE 27 mmol/L (21-32); CHLORIDE 106 mmol/L (98-107); CREATININE 0.88 mg/dl (0.60-1.20); GLUCOSE 95 mg/dl (70-99); MAGNESIUM 2.1 mg/dl (1.8-2.4); POTASSIUM 3.7 mmol/L (3.5-5.1); SODIUM 142 mmol/L (136-145)
[2016-12-31 01:47] LABS: ALB/GLOB RATIO 0.9 (0.9-2); ALKALINE PHOSPHATASE 95 U/L (45-117)
--- NOTE | 2016-12-31 03:44 | EMERGENCY ROOM VISIT NOTE ---
History First contact with patient: 23:53 Chief Complaint: SHORTNESS OF BREATH Stated Complaint: SOB,CHEST PAIN,PE 5 WKS AGO Nursing Triage Summary: Hx of PE, smpytoms have been improved for weeks but SOB and mid chest pain returned today. Patient concerned for another PE History of Present Illness The patient is a 51 year old female who presents to the Emergency Department by private vehicle for evaluation of her chest heaviness and mild shortness of breath. She reports that she was diagnosed with a DVT as well as saddle pulmonary embolism 5 weeks ago. She was discharged on Xarelto. She reports that she was feeling well until this evening. She developed similar heaviness and pleuritic pain which concerned her. She denies any radiation of the pain. She reports this feels exact same as her previous episode of PE. She is concern for possible return of blood clot. She is taking all of her medications as prescribed. She rates her current discomfort as a 5/10. She denies any headaches, dizziness, lightheadedness, palpitations, hemoptysis, nausea, vomiting, abdominal pain. Review of Systems A complete 10-point Review of Systems was discussed with the patient, with pertinent positives and negatives listed in the History of Present Illness. All remaining Review of Systems questions can be considered negative unless otherwise specified. Past Medical/Surgical History Medical Problems: (1) Dyspnea (2) Pneumonia (3) Renal cancer Surgical Problems: (1) H/O partial nephrectomy (2) S/P cholecystectomy Family History Cancer FH: heart disease FHx: lung disease Hypertension Social History Smoking Status: Never Smoker Alcohol Use: none Drug Use: none Marital Status: Housing Status: lives with significant other Occupation Status: employed Current/Historical Medications Scheduled Montelukast Sodium (Singulair), 10 MG PO HS Rivaroxaban (Xarelto), 1 TAB PO DAILY Allergies Coded Allergies: BEE STING (Verified Allergy, Unknown, SWELLING, 12/31/16) Tamsulosin (Verified Allergy, Unknown, NUMBNESS/TINGLING ON ARM, 12/31/16) Physical Exam Vital Signs Date Time Temp Pulse Resp B/P Pulse Ox O2 Delivery O2 Flow Rate FiO2 12/31/16 03:52 74 18 134/78 97 Room Air 12/31/16 02:37 74 20 131/79 97 Room Air 12/31/16 02:36 73 12/31/16 00:43 98 Room Air 12/30/16 21:56 99 Room Air 12/30/16 21:42 36.9 111 20 148/79 99 Room Air Pain Rating (0-10): 5 Physical Exam VITAL SIGNS - Vital signs and nursing notes were reviewed. GENERAL - 51-year-old female appearing her stated age who is in no acute distress. Communicates well with provider and answers questions appropriately. LUNGS - Chest wall symmetric without accessory muscle use, intercostals retractions, or central cyanosis. Normal vesicular breath sounds CTA B/L. No wheezes, rales, or rhonchi appreciated. CARDIAC - RRR with S1/S2. No murmur, rubs, or gallops appreciated. No reproducible tenderness to palpation appreciated over the anterior chest wall. ABDOMEN - Abdominal contour flat and without pulsations or visible masses. BS normoactive all four quadrants. No tenderness, palpable masses, hepatosplenomegaly, or ascites noted. EXTREMITIES - No clubbing or peripheral cyanosis. No pretibial edema present. +3 /5 radial and dorsalis pedis pulses palpated throughout. +5/5 strength noted in UE/LE bilaterally. NEUROLOGIC - Cranial nerves II through XII grossly intact. Sensory intact to light touch throughout. PSYCH - A&Ox3 and cooperates fully with examiner. Pt is very pleasant and interacts well with examiner. Medical Decision & Procedures ER Provider Diagnostic Interpretation: Radiological imaging and reports were reviewed by myself. Radiologist's Interpretation as follows: CHEST ONE VIEW PORTABLE CLINICAL HISTORY: Chest pain and shortness of breath. History of pulmonary embolism. COMPARISON STUDY: 11/28/2016 FINDINGS: The patient is taking a poor inspiration with bronchovascular crowding at the lung bases. There is no lobar consolidation. There is no overt failure. There are no significant pleural effusions.[ IMPRESSION: Poor inspiration with hypoventilatory changes the lung bases. CT ANGIOGRAM OF THE CHEST CLINICAL HISTORY: Chest pain shortness of breath. Recent history of pulmonary embolism. COMPARISON STUDY: 11/28/2016 TECHNIQUE: Following the IV administration of 88 mL of Optiray-320, CT angiogram of the thorax was performed from the thoracic inlet to the lung bases utilizing the pulmonary embolus protocol. Images are reviewed in the axial, sagittal, and coronal planes. IV contrast was administered without complication. MIP imaging was performed. CT DOSE: 243.16 mGy.cm FINDINGS: No pathologically enlarged axillary mediastinal or hilar lymph nodes were visualized. There was no evidence of thoracic aortic dilatation. There is been resolution of the previously identified bilateral pulmonary emboli. No acute emboli are visualized No pleural effusions are visualized. There was no evidence of focal pulmonary consolidation. IMPRESSION: 1. Interval resolution of the previously identified pulmonary emboli. No acute emboli identified.. 2. No evidence of acute parenchymal consolidation. No pleural effusions identified. Laboratory Results 12/31/16 01:00 Red Blood Count 4.60, Mean Corpuscular Volume 83.7, Mean Corpuscular Hemoglobin 28.0, Mean Corpuscular Hemoglobin Concent 33.5, Mean Platelet Volume 10.6, Neutrophils (%) (Auto) 56.7, Lymphocytes (%) (Auto) 35.7, Monocytes (%) (Auto) 6.0, Eosinophils (%) (Auto) 1.1, Basophils (%) (Auto) 0.3, Neutrophils # (Auto) 5.02, Lymphocytes # (Auto) 3.16, Monocytes # (Auto) 0.53, Eosinophils # (Auto) 0.10, Basophils # (Auto) 0.03 12/31/16 01:00 Test 12/31/16 01:00 12/31/16 01:02 White Blood Count 8.86 K/uL (4.8-10.8) Red Blood Count 4.60 M/uL (4.2-5.4) Hemoglobin 12.9 g/dL (12.0-16.0) Hematocrit 38.5 % (37-47) Mean Corpuscular Volume 83.7 fL (80-100) Mean Corpuscular Hemoglobin 28.0 pg (25-34) Mean Corpuscular Hemoglobin Concent 33.5 g/dl (32-36) Platelet Count 279 K/uL (130-400) Mean Platelet Volume 10.6 fL (7.4-10.4) Neutrophils (%) (Auto) 56.7 % Lymphocytes (%) (Auto) 35.7 % Monocytes (%) (Auto) 6.0 % Eosinophils (%) (Auto) 1.1 % Basophils (%) (Auto) 0.3 % Neutrophils # (Auto) 5.02 K/uL (1.4-6.5) Lymphocytes # (Auto) 3.16 K/uL (1.2-3.4) Monocytes # (Auto) 0.53 K/uL (0.11-0.59) Eosinophils # (Auto) 0.10 K/uL (0-0.5) Basophils # (Auto) 0.03 K/uL (0-0.2) RDW Standard Deviation 42.3 fL (36.4-46.3) RDW Coefficient of Variation 13.8 % (11.5-14.5) Immature Granulocyte % (Auto) 0.2 % Immature Granulocyte # (Auto) 0.02 K/uL (0.00-0.02) Prothrombin Time 10.6 SECONDS (9.0-12.0) Prothromb Time International Ratio 1.0 (0.9-1.1) Activated Partial Thromboplast Time 31.8 SECONDS (21.0-31.0) Partial Thromboplastin Ratio 1.2 Urine Color YELLOW Urine Appearance CLEAR (CLEAR) Urine pH 7.5 (4.5-7.5) Urine Specific [place] 1.005 (1.000-1.030) Urine Protein NEG (NEG) Urine Glucose (UA) NEG (NEG) Urine Ketones NEG (NEG) Urine Occult Blood NEG (NEG) Urine Nitrite NEG (NEG) Urine Bilirubin NEG (NEG) Urine Urobilinogen NEG (NEG) Urine Leukocyte Esterase MODERATE (NEG) Urine WBC (Auto) 1-5 /hpf (0-5) Urine RBC (Auto) 0-4 /hpf (0-4) Urine Hyaline Casts (Auto) 0 /lpf (0-5) Urine Epithelial Cells (Auto) >30 /lpf (0-5) Urine Bacteria (Auto) NEG (NEG) Urine Test NEG (NEG) Est Creatinine Clear Calc Drug Dose 75.4 ml/min Estimated GFR () 87.6 Estimated GFR (Non- 75.5 BUN/Creatinine Ratio 14.9 (10-20) Calcium Level 8.6 mg/dl (8.5-10.1) Magnesium Level 2.1 mg/dl (1.8-2.4) Total Bilirubin 0.2 mg/dl (0.2-1) Aspartate Amino Transf (AST/SGOT) 16 U/L (15-37) Alanine Aminotransferase (ALT/SGPT) 23 U/L (12-78) Alkaline Phosphatase 95 U/L (45-117) Total Creatine Kinase 45 U/L (26-192) Creatine Kinase MB < 0.5 ng/ml (0.5-3.6) Creatine Kinase MB Ratio (0-3.0) Total Protein 7.4 gm/dl (6.4-8.2) Albumin 3.6 gm/dl (3.4-5.0) Globulin 3.8 gm/dl (2.5-4.0) Albumin/Globulin Ratio 0.9 (0.9-2) Lipase 153 U/L (73-393) Bedside Hemoglobin 13.9 g/dl (12.0-16.0) Bedside Hematocrit 41 % (37-47) Bedside Sodium 142 mEq/L (135-144) Bedside Potassium 3.7 mEq/L (3.3-5.0) Bedside Chloride 102 mEq/L (101-112) Bedside Total CO2 25 mEq/l (24-31) Anion Gap 19.0 mmol/L (16-25) Bedside Blood Urea Nitrogen 13 mg/dl (7-18) Bedside Creatinine 0.8 mg/dl (0.6-1.3) Bedside Glucose (other) 98 mg/dl (70-99) Bedside Ionized Calcium (Prasad) 1.17 mmol/l (1.12-1.32) Medications Administered Medications (Trade) Dose Ordered Sig/Amalia Route Start Time Stop Time Status Last Admin Dose Admin Sodium Chloride (Nss 1000ml) 1,000 ml @ 125 mls/hr Q8H STAT IV 12/31/16 00:04 12/31/16 04:17 DC 12/31/16 00:04 125 MLS/HR Procedure Patient was placed on the phototypesetting equipment monitor and monitored throughout the entire extent of their stay. In addition, the patient's pulse oximetry was monitored throughout the entire stay. Any abnormalities or aberrancies were addressed appropriately. ECG Indication: SOB/dyspnea Rate (beats per minute): 74 Rhythm: sinus with SA Findings: PVC, no acute ischemic change, no ectopy Comparison ECG Date: when compared to 11/28/2016, resolve of nonspecific ST abnormality. ED Course Patient was seen and evaluated by myself. Previous emergency department visit notes and hospitalizations were reviewed. Labs were drawn, saline lock in place. The patient was hydrated with normal saline at 125 mL per hour. EKG and chest x-rays were obtained and found to be unremarkable. CTA of the chest was obtained. Laboratory results demonstrate no acute leukocytosis, worrisome anemia, or bandemia. The patient has no significant electrolyte abnormalities. Cardiac enzymes were negative. CTA was otherwise unremarkable. The patient is resting comfortably and reports feeling fine at this time. She was encouraged to continue to follow up with her specialists from today's visit as well as continue her Xarelto. She was educated on worrisome symptoms for return visit to the emergency department. Patient discharged home in good condition. Medical Decision Given the patient's presentation and stated complaints, I did elect to perform the above-mentioned workup. The patient presents today with chest heaviness and pleuritic pain. She recently was diagnosed with PE. She is on his Xarelto for anticoagulation. Her cardiac enzymes were negative and EKG is unremarkable. CTA shows resolution of large saddle PE. Patient was educated on these findings. She is resting comfortably at this time and has no other complaints. She was encouraged to follow-up with her specialist and continue her medications as prescribed. She was educated on worrisome symptoms for return visit to the emergency department. Patient discharged home in good condition. In the evaluation and treatment of this patient, the following differential diagnoses were considered: MD, ASC, Dysrhythmia, Angina, Mediastinitis, GERD, Esophagitis, PE, Pneumonia, Bronchitis, Costochondritis, Rib Fracture, Zoster. Impression Primary Impression: Chest pressure Additional Impression: Pulmonary embolism Departure Information Dispostion Home / Self-Care Condition GOOD Referrals Nacho Enciso DO (PCP) Patient Instructions [facility] Additional Instructions You have been treated in the Emergency Department for your Chest Tightness. Continue current medications. For pain control, you can use the following [id number]-hiycovs medicines (if >12 yo): - Regular strength (325mg/tab) Tylenol (acetaminophen) 2 tabs every 4-6 hours as needed. Do not exceed 12 tablets in a 24 hour period. Avoid taking more than 4 grams (4000 mg) of Tylenol per day. This includes any other sources of acetaminophen you may take on a regular basis. - Regular strength (200 mg/tab) Advil (ibuprofen) 1-2 tabs every 4-6 hours as needed. Do not exceed a dose of 3200 mg per day. You should schedule a follow-up appointment with your Primary Care Provider in 2 -3 days for further evaluation from today's Emergency Department visit. Return to the Emergency Department if your current symptoms worsen despite treatment course outlined above, or if you develop any of the following symptoms : worsening chest pain, associated jaw/arm pain, nausea, dizziness, shortness of breath, bloody cough, or fainting. Problem Qualifiers Additional Impression: Pulmonary embolism Pulmonary embolism type: other Chronicity: unspecified Acute cor pulmonale presence: without acute cor pulmonale Qualified Codes: I26.99 - Other pulmonary embolism without acute cor pulmonale
[2016-12-31 03:52] VITALS: BP 134/78; PULSE 74; O2SAT 97
--- NOTE | 2016-12-31 06:47 | DIAGNOSTIC IMAGING REPORT ---
CHEST ONE VIEW PORTABLE CLINICAL HISTORY: Chest pain and shortness of breath. History of pulmonary embolism. COMPARISON STUDY: 11/28/2016 FINDINGS: The patient is taking a poor inspiration with bronchovascular crowding at the lung bases. There is no lobar consolidation. There is no overt failure. There are no significant pleural effusions.[ IMPRESSION: Poor inspiration with hypoventilatory changes the lung bases. Electronically signed by: Shree Johnson M.D. 12/31/2016 6:45 AM Dictated Date/Time: 12/31/2016 6:44 AM
--- NOTE | 2016-12-31 08:59 | DIAGNOSTIC IMAGING REPORT ---
CT ANGIOGRAM OF THE CHEST CLINICAL HISTORY: Chest pain shortness of breath. Recent history of pulmonary embolism. COMPARISON STUDY: 11/28/2016 TECHNIQUE: Following the IV administration of 88 mL of Optiray-320, CT angiogram of the thorax was performed from the thoracic inlet to the lung bases utilizing the pulmonary embolus protocol. Images are reviewed in the axial, sagittal, and coronal planes. IV contrast was administered without complication. MIP imaging was performed. CT DOSE: 243.16 mGy.cm FINDINGS: No pathologically enlarged axillary mediastinal or hilar lymph nodes were visualized. There was no evidence of thoracic aortic dilatation. There is been resolution of the previously identified bilateral pulmonary emboli. No acute emboli are visualized No pleural effusions are visualized. There was no evidence of focal pulmonary consolidation. IMPRESSION: 1. Interval resolution of the previously identified pulmonary emboli. No acute emboli identified.. 2. No evidence of acute parenchymal consolidation. No pleural effusions identified. Electronically signed by: Shree Johnson M.D. 12/31/2016 8:58 AM Dictated Date/Time: 12/31/2016 8:55 AM
== END 2016-12-31 04:01 | disposition home or self-care (01) ==
LOC: C.EDB 21:38 → C.EDC 12-31 04:01
DX: I26.99 Other pulmonary embolism without acute cor pulmonale (principal); Z79.01 Long term (current) use of anticoagulants; Z79.899 Other long term (current) drug therapy

== ENCOUNTER → 2017-02-14 | Outpatient (CLI) | payer BC ==
[~2017-02-14] MED LIST changes: -TYLOTC500 PO; -XRL15 PO
--- NOTE | 2017-02-15 12:47 | MAMMOGRAPHY REPORT ---
BILATERAL DIGITAL SCREENING MAMMOGRAM TOMOSYNTHESIS WITH CAD: 02/14/2017 CLINICAL HISTORY: Routine screening. Patient has no complaints. TECHNIQUE: Breast tomosynthesis in addition to standard 2D mammography was performed. Current study was also evaluated with a Computer Aided Detection (CAD) system. COMPARISON: Comparison is made to exams dated: 11/18/2015 mammogram, 01/13/2014 mammogram, 01/07/2013 m ammogram, 12/21/2011 aspiration, 12/19/2011 ultrasound, and 12/19/2011 mammogram - [facility]. BREAST COMPOSITION: There are scattered areas of fibroglandular density in both breasts. FINDINGS: There is a 9 mm asymmetry in the superior posterior right breast, near the fatglandular interface on the MLO view, thought to project laterally on the CC view, that is increasingly promine nt comparing to prior mammograms. Further evaluation with spot compression tomosynthesis views and possibly ultrasound are recommended. There are a few stable benign-appearing microcalcifications in the breasts. No other suspicious mass , architectural distortion or cluster of microcalcifications is seen. IMPRESSION: ACR BI-RADS CATEGORY 0: INCOMPLETE EVALUATION: NEED ADDITIONAL IMAGING EVALUATION The increasingly prominent 9 mm asymmetry in the superior, posterior right breast needs additional e valuation. The patient will be called to schedule an appointment. Approximately 10% of breast cancers are not detected with mammography. A negative mammographic repor t should not delay biopsy if a clinically suggestive mass is present. June Coughlin M.D. ay/:02/14/2017 18:01:16 Radio Time Buyer: Anne PARKER(Alf)(Emily), [facility] letter sent: Addl Imaging 0 BI-RADS Code: ACR BI-RADS Category 0: Incomplete Evaluation: Need Additional Imaging Evaluation
== END | disposition home or self-care (01) ==
LOC: C.MAMM 13:55
PROVIDERS: ATTEND Obstetrics & Gynecology
DX: Z12.31 Encounter for screening mammogram for malignant neoplasm of breast (principal); N64.9 Disorder of breast, unspecified

== ENCOUNTER → 2017-02-28 | Outpatient (CLI) | payer BC ==
--- NOTE | 2017-02-28 15:29 | MAMMOGRAPHY REPORT ---
UNILATERAL RIGHT DIGITAL DIAGNOSTIC MAMMOGRAM TOMOSYNTHESIS AND TARGETED RIGHT ULTRASOUND: 02/28/2017 CLINICAL HISTORY: 51-year-old woman called back from screening mammography for an increasingly promi nent 10 mm asymmetry in the posterior superior right breast on the MLO view. History of prior right breast cyst aspiration. TECHNIQUE: Spot compression right CC and MLO tomosynthesis images were obtained. COMPARISON: Comparison is made to exams dated: 02/14/2017 mammogram, 11/18/2015 mammogram, 01/13/2014 mammogram, 01/07/2013 mammogram, 12/21/2011 aspiration, and 12/19/2011 ultrasound - [facility]. BREAST COMPOSITION: There are scattered areas of fibroglandular density in the right breast. FINDINGS: On the spot compression MLO view of the right superior breast, there is decreased prominen ce of the asymmetry in the superior posterior aspect of the breast. It currently measures 7.2 mm, p reviously 9.6. Circumscribed lobulated masses are seen in the middle one third of the right breast, along the posterior nipple line and in the lateral breast on the spot compression CC view. No susp icious spiculated mass, focal area of architectural distortion or suspicious macrocalcification. Targeted ultrasound was performed in the superior right breast, also including the 4:00 and 8:00 axe s and retroareolar aspect of the breasts. In the 9:00 axis, 2 cm from the nipple, there are 2 adjac ent oval parallel hypoechoic cystic-appearing masses measuring 5.2 x 4.7 x 4.5 mm in conglomerate. These appear similar to the 12/19/2011 ultrasound, may be slightly decreased in size. There is a lo bulated anechoic benign simple cyst in the 9:00 periareolar right breast measuring 4.3 x 2.8 x 3.3 m m. Another oval parallel circumscribed anechoic cyst is identified in the 10:00 periareolar right b reast measuring 5.6 x 3.0 x 8.7 mm. 2 lobulated anechoic cysts are present in the 1:00 right breast , 3 cm from the nipple, measuring 5.2 x 1.9 x 5.1 mm in conglomerate. There is a rounded circumscri bed isoechoic solid-appearing mass, with ducts coursing to and away from this mass, suggesting it re presents an intraductal mass. It measures 3.4 x 2.7 x 3.6 mm. There is a rounded circumscribed hyp oechoic cystic-appearing mass with posterior acoustic enhancement in the 8:[address] measuring 5.7 x 4.4 x 5.9 mm. IMPRESSION: ACR BI-RADS CATEGORY 4: SUSPICIOUS, TARGETED ULTRASOUND ACR BI-RADS CATEGORY 4: SUSPICI OUS 1. Ultrasound guided core needle biopsy is recommended for an incidentally identified 3.6 mm mass i n the 1:00 periareolar right breast, that appears intraductal. 2. Ultrasound guided cyst aspiration is recommended for a hypoechoic cystic-appearing mass in the 8 :00 periareolar right breast. 3. The asymmetry in the superior posterior right breast on the MLO view partially effaces with the additional spot compression MLO view, and the spot compression appearance appears very similar to th e 11/18/2015 exam, suggesting benignity. This can also be reassessed at time of postprocedure imagi ng. These results and recommendations were discussed with the patient at the time of the exam. She tent atively scheduled the right breast ultrasound guided core biopsy and cyst aspiration prior to leavin g our department. She is currently taking Xarelto and should continue this as per normal prior to b iopsy. Approximately 10% of breast cancers are not detected with mammography. A negative mammographic repor t should not delay biopsy if a clinically suggestive mass is present. June Coughlin M.D. ay/:02/28/2017 09:05:31 Operations And Maintenance Specialist: Adelita PARKER(Alf)(Emily), [facility] letter sent: Abnormal 4/5 BI-RADS Code: ACR BI-RADS Category 4: Suspicious Ultrasound BI-RADS: ACR BI-RADS Category 4: Suspic ious
== END | disposition home or self-care (01) ==
LOC: C.MAMM 08:23
PROVIDERS: ATTEND Obstetrics & Gynecology
DX: N63 Unspecified lump in breast (principal); N60.01 Solitary cyst of right breast; R92.8 Other abnormal and inconclusive findings on diagnostic imaging of breast

== ENCOUNTER → 2017-03-08 | Outpatient (CLI) | payer BC ==
--- NOTE | 2017-03-08 09:30 | Discharge Instructions ---
Discharge Instructions Procedure Procedure Date: March 08, 2017. Reason for visit: Right Mass. Discharge Discharge Date: March 08, 2017. Discharge Diagnosis: post right breast ultrasound guided cyst aspiration and core biopsy Instructions Activity Recommendations: Additional Limitations (see below) Return to School/Work: no limitations Recommended Home Diet: No Limitations Provider Instructions: ACTIVITY RECOMMENDATIONS: * No lifting, pushing, pulling or exercising the affected side for three days. RETURN TO SCHOOL/WORK: * You may return to work/school after the procedure, but do not perform any strenuous activities for 24 to 48 hours. MEDICATIONS: * Tylenol (two 325 mg) every four to six hours if needed for mild pain (if not allergic to Tylenol). DIET: * Resume previous diet. SPECIAL CARE INSTRUCTIONS: * Keep biopsy site dry for 24 hours. May shower after 24 hours, but do not soak (bathe) incision. * May remove Tegaderm (plastic patch) tomorrow AFTER showering. * Leave the steri-strips on for one week. Allow the steri-strips to fall off by themselves. If not off after one week, you may remove them. You may place a Bandaid crosswise over the strips, if desired. * Apply ice 10 minutes on and 10 minutes off as needed. * Wear a bra at bedtime to sleep more comfortably for 2-3 days. * Your referring physician should have the results after approximately 5 to 7 business days. * Call for unusual bleeding, fever, drainage, etc or if you have any questions call [phone] during normal business hours or after hours call Dr Coughlin, . FOLLOW UP VISIT: Follow-up with Referring Physician as scheduled. Allergies Coded Allergies: BEE STING (Verified Allergy, Unknown, SWELLING, 12/31/16) Tamsulosin (Verified Allergy, Unknown, NUMBNESS/TINGLING ON ARM, 12/31/16) Abril Castellanos Recommendations: Call your doctor if: * Temperature above 101 degrees * Pain not relieved by pain medicine ordered * There is increased drainage or redness from any incision * You have any unanswered questions or concerns. Your Doctors Instructions noted above were prepared by provider June Coughlin. Patient Signature Section: Patient Instructions Signature Page Adelia Yu Patient (or Guardian) Signature/Date: I have read and understand the instructions given to me by my caregivers. Caregiver/RN/Doctor Signature/Date: The above-named patient and/or guardian has received patient instructions on this date. + Original Patient Signature Page (only) stays with chart. Please make copy for patient.
--- NOTE | 2017-03-08 13:33 | MAMMOGRAPHY REPORT ---
ASPIRATION RIGHT BREAST: 03/08/2017 CLINICAL HISTORY: Patient presents for ultrasound-guided cyst aspiration for a cystic appearing 5.6 mm mass in the 8:00 right breast. Ultrasound guided core biopsy was performed at the same time in t he 1:00 right breast. COMPARISON: Comparison is made to exams dated: 03/08/2017 ultrasound biopsy, 02/28/2017 ultrasound, mammogram, 11/18/2015 mammogram, 01/13/2014 mammogram, and 12/21/2011 aspiration - [facility]. PATIENT CONSENT: After explaining the risks, benefits and alternatives of the procedure to the patie nt, informed consent was obtained verbally and in writing. Specific risks include: bleeding, infecti on and puncture of adjacent structure. A time out was preformed and the right breast was confirmed a s the site for aspiration and biopsy. PROCEDURE DESCRIPTION: The hypoechoic cystic appearing mass in the 8:00 periareolar right breast was identified. 1% lidocaine was administered subcutaneously and intraparenchymally as local anesthesia . A 22 gauge needle was advanced into the mass and aspiration was performed. The mass resolved comp letely, confirming cystic nature. The fluid was opaque and brownish, therefore sent to the patholog y department for cytologic analysis. IMPRESSION: ASPIRATION Status post aspiration to resolution of a cystic appearing mass in the 8:00 right breast. The fluid was sent to the pathology department for cytologic analysis. The patient will receive notification of the biopsy results from her referring physician. June Coughlin M.D. ay/:03/08/2017 12:18:07 Financial Sales Professional: Anne REYES)Missy), [facility]
--- NOTE | 2017-03-08 13:33 | MAMMOGRAPHY REPORT ---
UNILATERAL RIGHT DIGITAL DIAGNOSTIC MAMMOGRAM TOMOSYNTHESIS: 03/08/2017 CLINICAL HISTORY: Status post ultrasound guided cyst aspiration in the 8:00 right breast, and ultras ound-guided core biopsy in the 1:00 right breast. Please refer to the report from right breast ultrasound guided core biopsy performed at the [facility] for full detail. IMPRESSION: POST PROCEDURE IMAGING FOR MARKER PLACEMENT Please refer to the report from right breast ultrasound guided core biopsy performed at the same [facility] for full detail. Approximately 10% of breast cancers are not detected with mammography. A negative mammographic repor t should not delay biopsy if a clinically suggestive mass is present. June Coughlin M.D. ay/:03/08/2017 12:10:39 Trimmer Operator Three Knife: Anne PARKER(Alf)(Emily), [facility] BI-RADS Code: Post Procedure Imaging For Marker Placement
--- NOTE | 2017-03-08 15:48 | MAMMOGRAPHY REPORT ---
ULTRASOUND GUIDED BIOPSY RIGHT BREAST: 03/08/2017 CLINICAL HISTORY: Isoechoic circumscribed possible intraductal mass in the 1:00 periareolar right br east. Hypoechoic cystic-appearing mass in the 8:00 right breast. Patient presented for ultrasound- guided core needle biopsy and cyst aspiration. COMPARISON: Comparison is made to exams dated: 02/28/2017 ultrasound, 02/28/2017 mammogram, 02/14/2017 mammogram, 11/18/2015 mammogram, 01/13/2014 mammogram, and 01/07/2013 mammogram - [facility]. PATIENT CONSENT: The procedure, risks and benefits were discussed with the patient and informed writ ten consent was obtained. Specific risks to this procedure include: bleeding, infection, puncture of adjacent structure, nontarget biopsy, sampling error, metal allergy and medication reaction. PROCEDURE DESCRIPTION: The ultrasound-guided cyst aspiration in the 8:00 right breast was performed prior to the core biopsy in the 1:00 axis. Please refer to a separate report for full detail. A ti me out was performed and the right breast was agreed as the site of core biopsy. The skin was re-pre pped and draped in the usual sterile fashion. The solid mass in the 1:00 breast was chosen as the ta rget for biopsy. Subcutaneous and intraparenchymal 1% buffered lidocaine was administered as local a nesthesia. A skin incision was made. Through the incision, 4 samples were taken with a 14 gauge Sellobuy ieve biopsy device. A metallic marker was placed at the biopsy site. Hemostasis was achieved after m anual compression. The patient tolerated the procedure well and there was no immediate complication. The samples were sent to pathology in an appropriately labeled container. Postprocedure right CC and ML tomosynthesis images were obtained. A new ribbon-shaped metallic biop sy marker is seen at in the 1:00 anterior right breast. No post biopsy hematoma is identified. The asymmetry in the superior posterior right breast is less conspicuous on the current ML view, which confirms the suspicion of normal overlapping tissue. IMPRESSION: ULTRASOUND GUIDED BIOPSY Status post ultrasound-guided core needle biopsy in the 1:00 right breast, and cyst aspiration in th e 8:00 right breast. A metallic biopsy marker was placed after sampling in the 1:00 axis. The patient will receive notification of the pathology/cytology results from her referring physician . June Coughlin M.D. ay/:03/08/2017 15:38:43 Endoscopy Tech: Anne IBANEZ (R)), [facility]
== END | disposition home or self-care (01) ==
LOC: C.MAMM 08:27
PROVIDERS: ATTEND Obstetrics & Gynecology
DX: N63 Unspecified lump in breast (principal); N60.41 Mammary duct ectasia of right breast

== ENCOUNTER → 2017-06-20 | Outpatient (CLI) | payer BC ==
--- NOTE | 2017-06-20 08:52 | DIAGNOSTIC IMAGING REPORT ---
RIGHT LOWER EXTREMITY VENOUS DOPPLER HISTORY: Follow-up right leg DVT. COMPARISON STUDY: Right leg venous Doppler 11/28/2016. FINDINGS: Trace chronic stranding seen within the right popliteal vein. Otherwise, the remaining right lower extremity deep venous systems demonstrate normal compressibility, flow, and augmentation. IMPRESSION: No acute DVT within the right lower extremity. Trace chronic stranding within the right popliteal vein which has significantly improved. Electronically signed by: Dipak Ernst M.D. 06/20/2017 8:51 AM Dictated Date/Time: 06/20/2017 8:49 AM
== END | disposition home or self-care (01) ==
LOC: C.ULTRBC 08:17
PROVIDERS: ATTEND Family Medicine
DX: I82.401 Acute embolism and thrombosis of unspecified deep veins of right lower extremity (principal)

== ENCOUNTER → 2017-07-04 | Outpatient (CLI) | payer BC | END | disposition home or self-care (01) | LOC: C.PAPS 11:29 | PROVIDERS: ATTEND Obstetrics & Gynecology | DX: Z01.419 Encounter for gynecological examination (general) (routine) without abnormal findings (principal) ==

== ENCOUNTER → 2018-06-27 | Outpatient (CLI) | payer BC ==
--- NOTE | 2018-06-28 15:09 | MAMMOGRAPHY REPORT ---
BILATERAL DIGITAL SCREENING MAMMOGRAM TOMOSYNTHESIS WITH CAD: 06/27/2018 CLINICAL HISTORY: Routine screening. TECHNIQUE: The study was acquired using full field digital technology and interpreted from soft copy. Breast tomosynthesis in addition to standard 2D mammography was performed. Current study was also ev aluated with a Computer Aided Detection (CAD) system. COMPARISON: Comparison is made to exams dated: 02/28/2017 mammogram, 02/14/2017 mammogram, 11/18/2015 m ammogram, 01/13/2014 mammogram, 01/07/2013 mammogram, and 12/13/2011 mammogram - [facility]. BREAST COMPOSITION: There are scattered areas of fibroglandular density in both breasts. FINDINGS: There is a stable ribbon-shaped biopsy marker clip in the anterior right breast. Stable as ymmetry in the lateral right breast on the CC view appears similar dating back to at least 2011, ther efore likely benign. No new suspicious mass, architectural distortion or cluster of microcalcificatio ns is seen. IMPRESSION: ACR BI-RADS CATEGORY 1: NEGATIVE There is no mammographic evidence of malignancy. A 1 year screening mammogram is recommended.( [id number]) The patient will receive written notification of the results. Some breast cancers are not detected with mammography. A negative mammographic report should not geneva y biopsy if a clinically suggestive mass is present. June Coughlin M.D. ay/:06/27/2018 15:57:55 Glove Operator: RT Nella(Alf)(M), [facility] letter sent: Normal 1/2 BI-RADS Code: ACR BI-RADS Category 1: Negative
== END | disposition home or self-care (01) ==
LOC: C.MAMM 13:51
PROVIDERS: ATTEND Obstetrics & Gynecology
DX: Z12.31 Encounter for screening mammogram for malignant neoplasm of breast (principal)